=== PATIENT | female | born 1990 | race Caucasian/White ===

== ENCOUNTER → 2025-02-15 13:22 | Outpatient (REF) | payer OTHER, SELFPAY | LOC: HWRAD 13:22 | PROVIDERS: ATTENDING PHYSICIAN Internal Medicine Cardiovascular Disease; FAMILY PHYSICIAN Family Medicine | DX: Q23.1 Congenital insufficiency of aortic valve (principal); I77.810 Thoracic aortic ectasia | CPT/HCPCS: 71250 ==